=== PATIENT | female | born 1950 | race Asian ===

== ENCOUNTER 2023-02-25 09:20 | Emergency (ER) | payer OTHER ==
[~2023-02-25] VITALS: Ht 167.6 cm; Wt 68.5 kg
[2023-02-25 09:44] LABS: PLATELET COUNT 215 K/uL (152-353)
[2023-02-25 09:59] LABS: POTASSIUM 3.3 mmol/L (3.6-5.2)
[2023-02-25 10:20] VITALS: BP 126/69; TEMP 97.3
[2023-02-25] MEDS ORDERED: VITAMIN D325 MCG PO (12:18)
[2023-02-25] MEDS ORDERED: ASPIRIN LOW81 MG PO (12:18)
[2023-02-25] MEDS ORDERED: GLIPIZIDE PO (12:19)
[2023-02-25] MEDS ORDERED: DONE5TAB PO (12:19)
[2023-02-25] MEDS ORDERED: HYDR25TA60 PO (12:20)
[2023-02-25] MEDS ORDERED: METO50TA27 PO (12:21)
[2023-02-25] MEDS ORDERED: LISI10TA11 PO (12:21)
[2023-02-25] MEDS ORDERED: ZYPREXA ZYDI5 MG PO (12:22)
[2023-02-25] MEDS ORDERED: NOVOLOG FL100 UNIT/M SC (12:24)
[2023-02-25] MEDS ORDERED: HYDR25CA25 PO (12:24)
[2023-02-25] MEDS ORDERED: TRAZ50TA36 PO (12:25)
== END 2023-02-25 10:20 | disposition still patient (30) ==
LOC: ED 09:20
PROVIDERS: Emergency Medicine
DX: R45.6 Violent behavior (principal); Z02.79 Encounter for issue of other medical certificate
CPT/HCPCS: 80053; 85027; 87635; 93005; 99285; U0003